=== PATIENT | female | born 1980 | race Caucasian/White ===

== ENCOUNTER 2018-10-14 13:11 | Emergency (ER) | payer OTHER ==
[~2018-10-14] VITALS: Ht 152.4 cm; Wt 57.5 kg
[2018-10-14 13:27] VITALS: BP 115/77; PULSE 66; RESP 18; Ht 152.4 cm; Wt 57.5 kg
[2018-10-14] MEDS ORDERED: IPRATROPIUM (NEB) 0.5 MG/2.5 ML AMP NEB STA (14:47)
[2018-10-14] MEDS ORDERED: METHYLPREDNISOLONE 125 MG INJ IV STA (14:47)
[2018-10-14] MEDS ORDERED: ALBUTEROL 0.5% (NEB) 2.5 MG/0.5 ML AMP NEB STA (14:47)
--- NOTE | 2018-10-14 14:55 | ERD ---
ER Documentation Chief Complaint Chief Complaint Cough, chest/nasal congestion, SOB X 2 days HPI 38-year-old female with history of asthma presents with cough, chest, and wheezing for the past 2 days. States that she had a fever yesterday but denies any current fever. The only medication that she is taking his Robitussin. Denies taking any bronchodilators. States that she ran out of her normal asthma medication but she is unsure as to what she was taking. Medication was prescribed by in the [facility]. Denies nausea, vomiting, diarrhea, abdominal pain, chest pain, lightheadedness. Denies past medical history. Denies allergies. Denies medications. Denies surgeries. Denies alcohol, tobacco, drug use. Up to date on vaccines. ROS All systems reviewed and are negative except as per history of present illness. Medications Home Meds Active Scripts Prednisone* (Prednisone*) 20 Mg Tab, 40 MG PO DAILY for 4 Days, TAB Prov:STEPHAN CORDOVA 10/14/18 Beclomethasone Dipropionate (Qvar Redihaler (40 MCG)) 10.6 Gm Hfa.aeroba, 10.6 GM IH BID for asthma, #1 INH Prov:STEPHAN CORDOVA 10/14/18 Albuterol Sulfate* (Ventolin HFA*) 18 Gm Hfa.aer.ad, 2 PUFF INHALATION Q4H, #1 INHALER Prov:STEPHAN CORDOVA 10/14/18 Allergies Allergies: Coded Allergies: No Known Allergy (Unverified , 10/14/18) PMhx/Soc History of Surgery: Yes () Anesthesia Reaction: No Hx Neurological Disorder: No Hx Respiratory Disorders: No Hx Cardiac Disorders: No Hx Psychiatric Problems: No Hx Miscellaneous Medical Probl: No Hx Alcohol Use: No Hx Substance Use: No Hx Tobacco Use: No Smoking Status: Never smoker FmHx Family History: No diabetes, No coronary disease, No other Physical Exam Vitals Vital Signs Date Temp Pulse Resp B/P (MAP) Pulse Ox O2 O2 Flow FiO2 Time Delivery Rate 10/14/18 81 20 119/64 99 Room Air 15:55 (82) 10/14/18 90 20 96 21 15:30 10/14/18 97.7 66 18 115/77 100 13:27 (90) Physical Exam Const: No acute distress Head: Atraumatic Eyes: Normal Conjunctiva ENT: Normal External Ears, Nose and Mouth. Neck: Full range of motion. No meningismus. Resp: Wheezing heard diffusely in all lung lugo. No pallor or cyanosis noted. Cardio: Regular rate and rhythm, no murmurs Abd: Soft, non tender, non distended. Normal bowel sounds Skin: No petechiae or rashes Back: No midline or flank tenderness Ext: No cyanosis, or edema Neur: Awake and alert Psych: Normal Mood and Affect Results 24 hrs Laboratory Tests Test 10/14/18 15:29 POC Beta HCG, Qualitative NEGATIVE Current Medications Medications Dose Sig/Charly Start Time Status Last (Trade) Ordered Route PRN Stop Time Admin Dose Reason Admin Albuterol 10 mg ONCE STAT 10/14/18 DC 10/14/18 (Proventil NEB 14:47 15:26 0.5% (Neb)) 10/14/18 14:53 Ipratropium 1.5 mg ONCE STAT 10/14/18 DC 10/14/18 [place] NEB 14:47 15:26 (Atrovent 10/14/18 14:53 0.02% (Neb)) 125 mg ONCE STAT 10/14/18 DC 10/14/18 Methylprednis IV 14:47 14:57 olone Sodium 10/14/18 14:53 Succinate (Solu-Medrol) Procedures/MDM DIAGNOSTIC IMAGING REPORT Patient: JA DIAZ : 1980 Age: 38 Sex: F MR #: [id number] DOS: 10/14/18 1447 Ordering MD: STEPHAN CORDOVA Location: [facility] Room/Bed: PROCEDURE: XR Chest. CLINICAL INDICATION: Asthma TECHNIQUE: Single frontal view of the chest was obtained COMPARISON: None FINDINGS: The heart and mediastinum are within normal limits. The lungs are clear. There is no pleural effusion or pneumothorax. RPTAT: AA IMPRESSION: No acute disease. .Hernesto Navarro MD, Date Time Electronically viewed and signed by .Hernesto Navarro MD, on 10/14/2018 15:13 .S/ CC: STEPHAN CORDOVA [phone] ER Course: Patient given treatment with nebulized albuterol, ipatropium, and steroids. MDM: 38-year-old female with history of asthma presents with cough, chest, and wheezing for the past 2 days. States that she had a fever yesterday but denies any current fever. The only medication that she is taking his Robitussin. Denies taking any bronchodilators. Denies nausea, vomiting, diarrhea, abdominal pain, chest pain, lightheadedness. Denies past medical history. Denies allergies. Denies medications. Denies surgeries. Denies alcohol, tobacco, drug use. Up to date on vaccines. CXR performed and results WNL. I have low suspicion for status asthmaticus due to patient improvment after breathing treatment. I have low suspicion for CHF, pneumonia, aspirated foreign body, pneumothorax, PE, respiratory distress, or other mergent condition based on exam and patient history. In addition, patient does not meet Wells score criteria for D-Dimer. Presentation consistent with asthma exacerbation for which patient was given breathing treatment and steroids in ER. After breathing treatment was finished, patients vitals and exam were WNL and patient stated they felt much better. Patient was discharged with rx for alubuterol and a short course of oral steroids. Patient was also advised that asthma has to be managed on outpatient basis by primary care provider. Patient discharged with strict ER precautions. Patient advised to follow up with PMD. All questions answered at discharge. Departure Diagnosis: Primary Impression: Asthma exacerbation Asthma severity: unspecified severity Asthma persistence: intermittent Qualified Codes: J45.21 - Mild intermittent asthma with (acute) exacerbation Condition: Stable STEPHAN CORDOVA Oct 14, 2018 14:55
[2018-10-14] MEDS ORDERED: ALBU18HF INHALATION (14:56)
[2018-10-14] MEDS ORDERED: PRED20TA PO ×2 (14:56→15:42)
[2018-10-14] MEDS ORDERED: BECL10.6 IH (15:40)
== END 2018-10-14 16:15 | disposition home or self-care (01) ==
LOC: FTE 13:11
DX: J45.21 Mild intermittent asthma with (acute) exacerbation (principal)
CPT/HCPCS: 71045; 81025; 94664; J2930; Z7610; 96374